=== PATIENT | male | born 1945 | race Hispanic/Latino ===

== ENCOUNTER → 2017-02-04 | Day surgery (SDC) | payer OTHER, MEDICARE ==
[~2017-02-04] MED LIST: ATORVASTATIN CA10 M1 PO; COZAAR25 M1 PO; METFORMIN HCL1000 M1 PO; OMEPRAZOLE40 M1 PO; ONGLYZA2.5 M1 PO
--- NOTE | 2017-02-04 16:05 | Operative Report ---
Operative/Inv Procedure Report Surgery Date: 02/04/17 Name of Procedure: cystolithalopaxy, transurethral resection of prostate with bipolar resectoscope Pre-Operative Diagnosis: bladder stone and BPH Post-Operative Diagnosis: same Estimated Blood Loss: 50ml to 100ml Surgeon/Client Service Consultant: MARY HERNANDEZ MD Anesthesia: laryngeal mask airway Drains: 22Fr coude [address] catheter Specimens: prostate chips Complications: none Condition: stable Operative Indication: bladder stone with difficulty urinating and retention with BPH Operative/Procedure Note Note: This an operative dictation on patient Edin Martinez. Patient was identified in the holding area with his niece. The risks benefits and alternatives of the cystolitholapaxy and transurethral section of prostate tissue was given to the patient and the niece. All questions were answered. Patient was taken to the operating room placed on the operating table in the supine position. Once timeout was performed IV antibiotics were infused. General anesthesia with an LMA was then started. Patient was placed in the dorsal lithotomy position. Patient was prepped and draped in the standard sterile fashion. Cystoscope was performed and the bladder was globally inspected. The prostate was enlarged and had a tight bladder neck. The bladder had mild trabeculation and a diverticulum on the right side of the bladder with no evidence of any tumor in the bladder. Ureteral orifices were easily identified. A large bladder stone which is very white and crystalline in nature was seen to be at the area of the trigone. The cystoscope was switched out for the scope to accommodate the laser fiber. The initial laser fiber 400 in size was not working properly and so the larger laser fiber was then connected. This was used to fragment the bladder stone into many pieces. Once the entire bladder stone was fragmented to acceptable size the Ellik was used to remove the bladder stone fragments. The stone fragments were sent to pathology. The scope was then removed and a resectoscope was placed with the bipolar loop. The prep rustic was then resected starting from the left lateral lobe to the right lateral lobe taking care not to injure the ureters and being careful of staying within the confines of the verumontanum. Point coagulation was performed at points when active bleeding was seen. The prostate was resected near the to the prostate capsule. There was no injury to the rectum noted and bleeding was the addressed throughout the resection. The prostate chips were then removed using the Ellik evacuator. Prostate chips were sent to pathology in formalin. There were no remaining chips seen in the bladder. The resectoscope was removed. A 22 [place] three-way coud catheter was then placed and 15 mL of water was placed into the balloon port. The urine output with irrigation was lightly pink tinged. Patient tolerated the procedure well. Findings: Large white crystalline bladder stone jagged in appearance. Mild trabeculation of the bladder with one small right side diverticulum. No bladder lesions or tumors or masses noted. Ureteral orifices were in the normal anatomic location. Prostate was enlarged in the lateral lobes and no median lobe was appreciated. Discharge Disposition: PACU
== END ==
LOC: STS 01-14 07:00
DX: N40.0 Benign prostatic hyperplasia without lower urinary tract symptoms (principal); N21.0 Calculus in bladder; N32.89 Other specified disorders of bladder; E11.8 Type 2 diabetes mellitus with unspecified complications; Z79.84 Long term (current) use of oral hypoglycemic drugs; I15.9 Secondary hypertension, unspecified; F17.200 Nicotine dependence, unspecified, uncomplicated
CPT/HCPCS: 82355; 88305; J0131; J0690; J2250